=== PATIENT | male | born 1935 | race Asian ===

== ENCOUNTER → 2022-06-21 09:56 | Outpatient (CLI) | payer MEDICARE, OTHER, SELFPAY ==
--- NOTE | 2022-06-21 | DI.RAD.S_ITS ---
PROCEDURE: FL BARIUM SWALLOW W SPEECH INDICATIONS: Other dysphagia COMPARISON: None. TECHNIQUE: Examination was conducted in conjunction with speech pathology per standard protocol. In the lateral projection, filming was performed of the patient swallowing. AP projection filming may also be performed with patient swallowing. COMPARISON: FINDINGS: Function: The oral preparatory phase appears normal, with proper containment. No laryngotracheal penetration or aspiration directly observed, however on some trials some contrast was visualized along the undersurface of the vocal folds and possibly along the posterior trachea. Moderate vallecular and piriform sinus residue. Intermittent non inversion of the epiglottis. Morphology: No cricopharyngeal bar is identified. IMPRESSION: 1. No tracheal aspiration directly observed. 2. Please see the speech pathologist report for additional details. Dictated by: Charlie Deal M.D. on 06/21/2022 at 11:35 Approved by: Charlie Deal M.D. on 06/21/2022 at 11:36
--- NOTE | 2022-06-21 11:30 | ST.SWALLOW ---
Visit Care Team Role Provider Type Marlon Edwards MD Attending Provider Non-Staff Primary Care Provider Referring Provider Specialty: Internal Medicine Address: [address] [place] [address], [place], [address] Email: Modified Barium Swallow Study HITCHER Modified Barium Swallow Study Start: 06/22/22 11:06 Freq: Status: Active Protocol: Document 06/21/22 11:30 ZS (Rec: 06/22/22 11:15 ZS [id number]) Modified Barium Swallow Study Total Time Visit Start Time 10:30 Visit Stop Time 11:00 Total Visit Minutes 30 Setting Setting Outpatient Care Patient Information Identification Type Name Patient History Anastasiya is an 86-year-old male who was referred for a Modified Barium Swallow Study following a chest x-ray in May 2022 that showed fluid in his lungs. He has been experiencing coughing and wheezing during the day, which reported does not worsen when eating. PCP recommended a low sodium diet due to fluid in the lungs and pt's reported reduced cough and wheezing on this diet. Subjective Observations Pt arrived on time accompanied by his . Pt ambulated to room independently. aided in collection of case history due to hearing impairment and pt's difficulty in speaking and understanding Urdu. Provided education regarding process and procedure. Pt expressed understanding and agreed to participate. Patient Positioning Position View Lat-A/P Imaging Lateral View Textures Administered Trials Presented Thin Liquid via Cup,[place] Liquid via Cup,Honey Liquid via Spoon,Pudding Thick Liquid via Spoon,Regular Textures, Barium Tablet Oral Phase Source: MBSIMP (TM) (C) Bolus Specific Scoring Grid Lip Closure No Impairment (WNL) Tongue Control During Bolus Hold Mild Impairment Bolus Prep/Mastication Mild Impairment Bolus Transport/Lingual Motion No Impairment (WNL) A/P Lingual Propulsion Delay No Oral Residue Mild Impairment Residue Clearing No Impairment (WNL) Nasal Regurgitation No Additional Oral Phase Observations The pt exhibited no anterior loss of bolus during tongue hold, though mild-moderate loss of bolus posteriorly, which pooled in valleculae. A/ p propulsion of bolus was timely and efficient. Mastication was observed to be more anterior munching rather than rotary chew, but bolus was well masticated prior to swallow. Pharyngeal Phase Source: MBSIMP (TM) (C) Bolus Specific Scoring Grid Delayed Initiation of Pharyngeal Swallow Yes: head of bolus in valleculae Soft Palate Elevation No Impairment (WNL) Tongue Base Strength/Range of Motion Minimal Impairment Residue Along the Tongue Base Yes: minimal Clearance of Residue Along Tongue Base No Impairment (WNL) Laryngeal Elevation Moderate Impairment Anterior Hyoid Movement Moderate Impairment Epiglottic Range of Motion Moderate Impairment Vallecular Residue Yes Clearance of Vallecular Residue Severe Impairment Laryngeal Vestibular Closure Moderate Impairment Pharyngeal Stripping Wave Mild Impairment Pharyngeal Contraction No Impairment (WNL) Posterior Pharyngeal Wall Residue No Upper Esophageal Sphincter Opening Moderate Impairment Residue in the Pyriform Sinuses Yes Clearance of Residue in the Pyriform Severe Impairment Sinuses Esophageal Clearance Upright Position Mild Impairment Pharyngoesophageal Backflow Observed No Additional Pharyngeal Phase Observations Delayed initiation of pharyngeal swallow, with head of bolus in the valleculae. He exhibited minimal impairment in base of tongue strength and pharyngeal stripping wave, though minimal residue was observed on base of tongue. Moderately severe impairment noted in epiglottic inversion, as epiglottis minimally inverted across all trials. Increased inversion to horizontal position noted with pudding thick liquids and solids, likely due to weight of bolus. Due to limited epiglottic inversion, laryngeal vestibular closure was moderate-severely impaired as arytenoids were unable to cover the distance given limited laryngeal elevation, moderately impaired hyoid elevation and excursion, and limited inversion of epiglottis. No aspiration or penetration was observed during assessment, however, residue was seen on inferior surface of vocal folds, indicating possible aspiration between captured swallows. Aspiration is likely secondary to high volume of residue in valleculae and pyriforms following swallow. Residue is negatively impacted by reduced epiglottic inversion as well as moderate-severely impaired opening of pharyngoesophageal sphincter (PES). PES observed to open minimally to allow passage of less than half the bolus through to esophagus. Attempted chin tuck to aid in PES opening, which did not appear to have impact on residue. Multiple swallows also were observed to be minimally effective given small quantity of bolus moving through PES with each swallow . High volume of residue places pt at high risk for aspiration. In addition to aspiration risk, pt observed to swallow air (aerophagia). A/P View Textures Administered Trials Presented Thin Liquid via Cup,Barium Tablet A/P View Observations Pharyngeal Contraction No Impairment (WNL) Residue Observed Valleculae Right,Valleculae Left,Pyriform Sinus Right, Pyriform Sinus Left Esophageal Function Slowed Clearing,Reverse Peristalsis,Narrowing Esophageal Clearance Upright Position Mild Impairment Additional Observations Pt exhibited slowed clearing as well as narrowing in esophageal phase of swallowing . Thin liquid cleared esophagus in a timely fashion, though residue observed following swallow and reverse peristalsis were seen. Barium tablet was slow to clear, getting caught in valleculae as well as stopping at gastroesophageal sphincter. Three drinks of water required to clear barium tablet from valleculae and move it to esophagus. Additional two drinks of water required to move tablet into stomach. Clinical Impressions Dysphagia Type Oropharyngeal Dysphagia Findings The pt presents with oropharyngeal phase dysphagia characterized by mastication difficulty, posterior spillage during tongue hold, and impaired laryngeal vestibular closure with minimal epiglottic inversion. Additionally, pt presents with slowed clearing and narrowing during esophageal phase of swallowing and referral to GI is recommended. Pt's moderately-severe impaired epiglottic inversion contributed to poor laryngeal vestibular closure and limited PES opening resulted in high volume of residue in valleculae and pyriforms. Pt exhibited moderately-severe challenges with clearing residue, despite chin tuck and multiple swallows. High volume of residue combined with moderately-severe impairment in epiglottic inversion and laryngeal vestibular closure places pt at high risk for aspiration. Modifying changes in liquid thickness did not appear to impact residue. Aspiration/ penetration were not observed during active recording, though residue was seen on inferior surface of vocal folds. Recommend outpatient speech therapy to increase strength of swallow musculature for increased swallow safety. Rehabilitation Potential Fair Patient Appropriate for Therapy Yes Recommendations Diet Liquids Order Thin Diet Order Regular Medication Recommendation As Tolerated,One at a Time Additional Dietary Needs Chopped Food,Single Sips Aspiration Precautions Recommended Precautions Upright at 90 Degrees, Alternate Liquids/Solids,Small Bites/Sips Treatment Plan Therapy Recommendations Outpatient Speech Therapy,Oral Motor Exercises,Base of Tongue Exercises Recommended Referrals GI Consult Compensatory Strategies Recommendations Small Bites and Sips,Alternate Liquids/Solids
== END ==
PROVIDERS: PCP Internal Medicine; Referring Provider Internal Medicine; Visit Provider Internal Medicine
DX: R13.19 Other dysphagia (principal)
CPT/HCPCS: 74230; 92611

== ENCOUNTER → 2022-07-19 13:21 | Outpatient (CLI) | payer MEDICARE, OTHER, SELFPAY ==
--- NOTE | 2022-07-19 | DI.ECHO.S_ITS ---
[facility] +---------+ : : [address] [place] [address] : : : : [id number] : : : : Phone: [phone] Echocardiogram Report + + :Name: PAPITO SCHNEIDER Study Date: 07/19/2022 Height: 64 in : :[facility] ReadingLocation: Weight: 130 lb : : Gender: Male BSA: 1.6 m2 : :: 1935 Age: 86 yrs BP: 135/89 mmHg: :Reason For Study: HEART FAILURE HR: 80 : :Ordering Physician: AMA AYALA Performed By: ZAMZAM HITCHCOCK : :Referring: AMA AYALA : + + Interpretation Summary The left ventricle is grossly normal size. Left ventricular systolic function is mildly reduced. The ejection fraction is estimated to be 45-50%. The right ventricle is mildly dilated. The right ventricular systolic function is normal. The right ventricular systolic pressure is estimated to be at least 72 mmHg based on an estimated right atrial pressure of 8 mm Hg. There is severe biatrial enlargement. The mitral valve leaflets appear moderately thickened. There is moderate to severe mitral regurgitation. There is severe aortic stenosis. The peak aortic velocity is 4 m/sec. There is moderate to severe aortic regurgitation. There is moderate to severe tricuspid regurgitation. There is moderate pulmonic regurgitation. The ascending aorta is mildly enlarged. If patient is moderately symptomatic then consider admit for aggressive diuresing. If minimally symptomatic then consider urgent outpatient cardiology consult. Procedure: A two-dimensional transthoracic echocardiogram with color flow and Doppler was performed. The study quality was technically adequate. There is no prior echocardiogram noted for this patient. The patient had frequent PVCs during the exam. Left Ventricle: The left ventricle is grossly normal size. Left ventricular wall thickness is mildly increased. Left ventricular systolic function is mildly reduced. The ejection fraction is estimated to be 45-50%. Diastolic function could not be accurately assessed due to confounding valvular disease. Right Ventricle: The right ventricle is mildly dilated. The right ventricular systolic function is normal. Atria: There is severe biatrial enlargement. There is no Doppler evidence for an interatrial shunt. Mitral Valve: The mitral valve leaflets appear moderately thickened. There is moderate mitral annular calcification. Mitral stenosis is difficult to assess. There is moderate to severe mitral regurgitation. Aortic Valve: The aortic valve is severely calcified. There is severe aortic stenosis. The aortic valve area indexed to the BSA is 0.30 . The peak aortic velocity is 4 m/sec. The aortic valve mean gradient is 42 mmHg. Severity ratio is 0.27. There is moderate to severe aortic regurgitation. Tricuspid Valve: The tricuspid valve is not well visualized, but is grossly normal. There is moderate to severe tricuspid regurgitation. The right ventricular systolic pressure is estimated to be at least 72 mmHg based on an estimated right atrial pressure of 8 mm Hg. Pulmonic Valve: The pulmonic valve is not well visualized. There is moderate pulmonic regurgitation. Great Vessels: The aortic root is normal size. The ascending aorta is mildly enlarged. The IVC is dilated (diameter is greater than 2.1 cm) yet it collapses greater than 50% with a sniff. This suggests a right atrial pressure of 8 mm Hg. Pericardium/ Pleura There is no pericardial effusion. There is no pleural effusion. MMode/2D Measurements & Calculations LVIDd: 5.6 cm LVOT diam: 1.7 cm LVIDs: 4.4 cm Ao root diam: 3.2 cm FS: 21.4 % asc Aorta Diam: 3.9 cm IVSd: 1.0 cm LVPWd: 1.1 cm LV villalpando. diameter/BSA (cm/m^2): 3.4 LV sys. diameter/BSA (cm/m^2): 2.7 LA A2 area: 22.9 cm2 RA long axis: 4.9 cm LA A4 area: 25.4 cm2 LA length (vol): 5.9 cm LA vol: 84.3 ml LA vol index: 51.7 ml/m2 RVD1 (basal): 4.2 cm LVLs ap4: 7.5 cm LVLd ap2: 9.6 cm TAPSE_phl: 3.1 cm LVLs ap2: 8.3 cm Doppler Measurements & Calculations Ao V2 max: 501.0 cm/sec LVOT Max Kam: 110.0 cm/sec Ao V2 mean: 365.0 cm/sec LV V1 max P.8 mmHg Ao max P.4 mmHg LV V1 VTI: 27.1 cm Ao mean P.0 mmHg JESUS MANUEL(I,D): 0.48 cm2 Ao V2 VTI: 127.0 cm JESUS MANUEL(V,D): 0.50 cm2 sev ratio: 0.21 JESUS MANUEL indexed to BSA (cm^2/m^2): 0.30 AI P1/2t: 408.4 msec AI dec slope: 251.0 cm/sec2 MV E max kam: 115.0 cm/sec TR max kam: 401.0 cm/sec MV dec time: 0.16 sec TR max P.3 mmHg PA V2 max: 131.0 cm/sec PA V2 mean: 87.5 cm/sec PA mean P.0 mmHg PA pr(Accel): 41.7 mmHg SV(LVOT): 61.5 ml AV P1/2t-pr_phl: 408.0 msec AV VR_phl: 0.25 JESUS MANUEL(VTI)/BSA_phl: 0.36 MV P1/2t-pr_phl: 48.0 msec Reading Physician:02:47 PM
== END ==
PROVIDERS: PCP Internal Medicine; Referring Provider Registered Nurse; Visit Provider Registered Nurse
DX: I50.9 Heart failure, unspecified (principal); I08.3 Combined rheumatic disorders of mitral, aortic and tricuspid valves; I77.89 Other specified disorders of arteries and arterioles
CPT/HCPCS: 93306

== ENCOUNTER → 2023-01-24 13:25 | Outpatient (CLI) | payer MEDICARE, OTHER, SELFPAY ==
--- NOTE | 2023-01-24 | DI.CT.S_ITS ---
PROCEDURE: CT CERVICAL SPINE WO CON INDICATIONS: Spinal stenosis, cervical region TECHNIQUE: Noncontrast 3 mm thick sections acquired from the skull base to the T4 level. Sagittal and coronal reformats were then constructed. For radiation dose reduction, the following was used: automated exposure control, adjustment of mA and/or kV according to patient size. COMPARISON: None. FINDINGS: Image quality: Excellent. Bones: No acute fractures or dislocations. Visualized superior ribs are intact. Generalized osteopenia. There is mild grade 1 anterolisthesis at C2-3 measuring 2 mm and at C4-5 measuring 1 mm. 2 mm retrolisthesis at C5-6 and C6-7. Multilevel disc space narrowing degenerative endplate changes are seen throughout the cervical spine, most notably at the C5-6 and C6-7 disc space levels. There is multilevel uncovertebral joint and facet hypertrophy that result in multilevel severe neural foraminal narrowing bilaterally. The degree of spinal canal narrowing is most notable and moderate at the C5-6 level. Soft tissues: Prevertebral soft tissues are normal in thickness. No paravertebral hematomas. No apical pneumothoraces. There is opacification of the right maxillary sinus. IMPRESSION: 1. 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 2. Severe multilevel bilateral neural foraminal narrowing. 3. Moderate narrowing of the bony spinal canal at the C5-6 level. No high-grade bony spinal canal stenosis. Approved by: Charlie Hampton M.D. on 01/24/2023 at 21:30
== END ==
PROVIDERS: PCP Internal Medicine; Referring Provider Neurological Surgery; Visit Provider Neurological Surgery
DX: M48.02 Spinal stenosis, cervical region (principal); M50.30 Other cervical disc degeneration, unspecified cervical region; M47.812 Spondylosis without myelopathy or radiculopathy, cervical region
CPT/HCPCS: 72125